=== PATIENT | female | born 1965 | race Caucasian/White ===

== ENCOUNTER 2018-04-07 20:46 | Emergency (ER) | payer OTHER, SELFPAY ==
[2018-04-07 20:47] VITALS: BP 115/106; PULSE 128; RESP 20; TEMP 36.2; O2SAT 99; BMI 26.2
--- NOTE | 2018-04-07 20:49 | ED.RN ---
NO OLD EKGS IN MUSE
[2018-04-07 20:59] VITALS: PULSE 101; RESP 16; O2SAT 100
--- NOTE | 2018-04-07 21:19 | EKG12_ITS ---
Test Reason : CHEST PRESSURE Blood Pressure : / mmHG Vent. Rate : 110 BPM Atrial Rate : 110 BPM P-R Int : 130 ms QRS Dur : 078 ms QT Int : 308 ms P-R-T Axes : 037 006 038 degrees QTc Int : 416 ms Sinus tachycardia Otherwise normal ECG Confirmed by GIAN BLANCO MD ([id number]), publishing editor SEEMA CORRIGAN ([id number] on 04/11/2018 10:44:23 AM Referred By: BB Confirmed By:GIAN BLANCO MD
--- NOTE | 2018-04-07 21:20 | CT_ITS ---
STUDY: CTA CHEST REASON FOR EXAM: Female, 52 years old. Tachycardia. Shortness of breath. RADIATION DOSAGE (If Supplied By Facility): CTDIvol = ( 8.43 ) mGy, DLP = ( 358.73 ) mGycm TECHNIQUE: The examination was performed with the intravenous administration of 75 ml of Isovue 370 contrast material. Post-processing of the angiographic images was performed, with multiplanar reformation and 3D reconstruction. Individualized dose optimization techniques were used for this CT. COMPARISON: None. FINDINGS: There are mild emphysematous changes noted in the lungs. There are no pulmonary infiltrates or pleural effusions. There is a calcified granuloma in the left upper lobe. There is prominence of the extrapleural fat in the right mid thorax. There is no evidence of pulmonary embolus. There is no evidence of thoracic aortic aneurysm or dissection. There is soft tissue density in the anterior mediastinum which is consistent with thymic hyperplasia. The heart and pericardium are within normal limits. There is no thoracic lymphadenopathy. Images through the upper abdomen demonstrate no significant abnormality. CT/CTA Chest W/WO Contrast IMPRESSION: No evidence of pulmonary embolus. No evidence of thoracic aortic aneurysm or dissection. Mild emphysema. Otherwise, clear lungs. Thymic hyperplasia. Electronically Signed: Amarjit Carlisle, at 22:47 EST Tel , Service support ,
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
[2018-04-07 21:33] LABS: Absolute Lymphocyte Count 3.33 X10^3/ul (0.83-4.51); Absolute Neutrophil Count 3.2 X10^3/uL (2.0-7.7); Basophil# 0.02 X10^3/uL; Basophil% 0.3 % (0-1); Eosinophil# 0.18 X10^3/uL; Eosinophils% 2.3 % (0-5); Hematocrit 43.4 % (37-47); Hemoglobin 14.1 g/dl (12.0-15.0); Lymphocyte # 3.33 X10^3/ul (4.0); Lymphocyte % 43.5 % (19-41); Mean Corp Hgb Conc 32.5 g/gl (32-36); Mean Corpuscular Hgb 29.7 pg (27.0-32.0); Mean Corpuscular Volume 91.4 fL (81-99); Mean Platelet Vol. 11.3 fl (6.2-12.0); Monocyte# 0.96 X10^3/uL; Monocyte% 12.5 % (0-10); Neutrophil # 3.16 X10^3/uL (2.7-7.7); Neutrophil % 41.3 % (47-70); Platelet Count 226 K/mm3 (150-450); RBC Distribution Width CV 13.1 % (11.6-14.6); Red Blood Count 4.75 M/mm3 (4.2-5.4); White Blood Count 7.7 K/mm3 (4.4-11.0)
[2018-04-07 21:34] LABS: POSITIVE COUNT NO; POSITIVE DIFFERENTIAL NO; POSITIVE MORPHOLOGY NO
[2018-04-07 21:45] LABS: Anion Gap 6 (5-15); BUN 20 mg/dL (7-18); BUN/Creat Ratio 35.4 RATIO (10-20); Calcium,Total 9.1 mg/dL (8.5-10.1); Chloride 107 mmol/L (98-107); Creatinine, Serum 0.56 mg/dL (0.55-1.02); EST Glomerular Filtration Rate 120 mL/min (>60); Est Glom Filt Rate - Afr Amer 145 mL/min (>60); Estimated Creatinine Clearance 89.68 ml/min; Glucose 103 mg/dL (74-106); Potassium 4.1 mmol/L (3.5-5.1); Sodium Level 140 mmol/L (136-145)
[2018-04-07 21:46] VITALS: BP 120/83; PULSE 90; RESP 19; O2SAT 99
[2018-04-07 22:00] LABS: BNP,B-Type NATRIURETIC PEPTIDE 11.8 pg/mL (0-100)
--- NOTE | 2018-04-07 22:05 | ED.RN ---
PT STATES SHE DOES NOT WANT TO WAIT ANY LONGER AND WOULD LIKE TO SIGN OUT AMA. REFUSED CT. DR GRULLON.
[2018-04-07 23:11] VITALS: BP 118/74; PULSE 87; RESP 17; O2SAT 97
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
== END 2018-04-07 23:15 | disposition home or self-care (01) ==
PROVIDERS: Emergency Provider Emergency Medicine; Family Provider Family Medicine; PCP Family Medicine
DX: R00.2 Palpitations (principal); J44.9 Chronic obstructive pulmonary disease, unspecified; E32.0 Persistent hyperplasia of thymus; F17.200 Nicotine dependence, unspecified, uncomplicated
CPT/HCPCS: 71275; 80048; 83880; 84484; 85025; 93005; 99283; J7030; Q9967; A4216